=== PATIENT | female | born 1935 | race Caucasian/White ===

== ENCOUNTER 2019-04-18 08:20 | Emergency (ER) | payer MEDICARE, BC ==
[2019-04-18] MEDS: Sodium Chloride 0.9% 10 ML Syringe FLUSH PRN ×2 (08:30→08:45)
--- NOTE | 2019-04-18 08:50 | EDM.PDOC ---
ED HPI GENERAL MEDICAL PROBLEM - General Chief Complaint: General Stated Complaint: PLUG PICC LINE Time Seen by Provider: 04/18/19 08:30 Source of Information: Reports: Patient History Limitations: Reports: No Limitations - History of Present Illness INITIAL COMMENTS - FREE TEXT/NARRATIVE: pt sent in from [facility] has PICC line that is clogged no pain or redness or swelling noted in the site PICC line being used for administration of IV antibiotics Onset: Today Onset Date: 04/18/19 Onset Time: 07:30 Location: Reports: Upper Extremity, Right Severity: Mild Associated Symptoms: Reports: No Other Symptoms - Related Data Allergies Allergy/AdvReac Type Severity Reaction Status Date / Time clindamycin Allergy Rash Verified 06/11/15 07:05 hydrocodone Allergy Cannot Verified 06/11/15 07:05 Remember Penicillins Allergy Hives Verified 06/11/15 07:05 prednisone Allergy Cannot Verified 06/11/15 07:05 Remember sulfamethoxazole Allergy Rash Verified 06/11/15 07:05 [From Bactrim] trimethoprim [From Bactrim] Allergy Rash Verified 06/11/15 07:05 EGG WHITES Allergy Cannot Uncoded 06/11/15 07:05 Remember Home Meds: Home Meds Hydrocodone/Acetaminophen [Hydrocodon-Acetaminophen 5-325] 1 each PO Q4HR PRN # 12 tablet 05/26/15 [Rx] Gabapentin 100 mg PO DAILY 06/10/15 [History] HCTZ/Triamterene [Dyazide 25-37.5 MG] 25 - 37.5 mg PO DAILY 06/10/15 [History] Montelukast [Singulair] 10 mg PO DAILY 06/10/15 [History] Omeprazole [Prilosec] 20 mg PO DAILY 06/10/15 [History] Simvastatin [Zocor] 20 mg PO DAILY 06/10/15 [History] Citalopram Hydrobromide [Celexa] 20 mg PO DAILY 06/11/15 [History] Past Medical History HEENT History: Reports: Cataract Cardiovascular History: Reports: High Cholesterol, Hypertension Respiratory History: Reports: Asthma Gastrointestinal History: Reports: Cholelithiasis, GERD Genitourinary History: Reports: None NURSERY RN History: Reports: None Musculoskeletal History: Reports: None Neurological History: Reports: None Psychiatric History: Reports: None Endocrine/Metabolic History: Reports: None Hematologic History: Reports: None Immunologic History: Reports: None Oncologic (Cancer) History: Reports: None Dermatologic History: Reports: None - Infectious Disease History Infectious Disease History: Reports: Chicken Pox, Measles - Past Surgical History HEENT Surgical History: Reports: Cataract Surgery, Tonsillectomy Female Surgical History: Reports: Hysterectomy, Other (See Below) Musculoskeletal Surgical History: Reports: Other (See Below) ED ROS GENERAL - Review of Systems Review Of Systems: Comprehensive ROS is negative, except as noted in HPI. ED EXAM, GENERAL - Physical Exam Exam: See Below Exam Limited By: No Limitations General Appearance: Alert, WD/WN, No Apparent Distress Eye Exam: Bilateral Eye: EOMI Head: Atraumatic Neck: Supple, Non-Tender Respiratory/Chest: No Respiratory Distress Peripheral Pulses: 2+: Brachial (L), Brachial (R), Radial (L), Radial (R) GI/Abdominal: Soft Skin Exam: Warm, Dry, Other (right cubital region and medial arm with PICC line ,. NO redness , non swelling , no pain) Course - Orders/Labs/Meds Orders: Active Orders 24 hr Category Date Time Status Heparin Sodium [Heparin Lock Flush 100 Units/ML] Med 04/18/19 08:38 Active 300 units FLUSH ASDIRECTED PRN Sodium Chloride 0.9% [Saline Flush] Med 04/18/19 08:43 Active 10 ml FLUSH ASDIRECTED PRN Medication Orders Heparin Sodium (Porcine) (Heparin Lock Flush 100 Units/Ml) 300 units FLUSH ASDIRECTED PRN PRN Reason: Keep Vein Open Sodium Chloride (Saline Flush) 10 ml FLUSH ASDIRECTED PRN PRN Reason: IV Use Meds: Medications Generic Name Dose Route Start Last Admin Trade Name Freq PRN Reason Stop Dose Admin Heparin Sodium (Porcine) 300 units 04/18/19 08:38 Heparin Lock Flush 100 Units/Ml FLUSH ASDIRECTED PRN Keep Vein Open Sodium Chloride 10 ml 04/18/19 08:43 Saline Flush FLUSH ASDIRECTED PRN IV Use - Re-Assessments/Exams Free Text/Narrative Re-Assessment/Exam: 04/18/19 08:49 PICC flushed with heparin and it resumed to be functional will continue with protocol Departure - Departure Time of Disposition: 09:00 Disposition: DC/Tfer to SNF 03 Condition: Fair Clinical Impression: PICC (peripherally inserted central catheter) flush, Occluded PICC line - Discharge Information *PRESCRIPTION DRUG MONITORING PROGRAM REVIEWED*: Not Applicable *COPY OF PRESCRIPTION DRUG MONITORING REPORT IN PATIENT ANDREW: Not Applicable Referrals: Tim Johnson MD [Primary Care Provider] - - My Orders Last 24 Hours: My Active Orders 04/18/19 08:38 Heparin Sodium [Heparin Lock Flush 100 Units/ML] 300 units FLUSH ASDIRECTED PRN 04/18/19 08:43 Sodium Chloride 0.9% [Saline Flush] 10 ml FLUSH ASDIRECTED PRN - Assessment/Plan Last 24 Hours: My Active Orders 04/18/19 08:38 Heparin Sodium [Heparin Lock Flush 100 Units/ML] 300 units FLUSH ASDIRECTED PRN 04/18/19 08:43 Sodium Chloride 0.9% [Saline Flush] 10 ml FLUSH ASDIRECTED PRN
[2019-04-18 09:25] VITALS: BP 136/67; PULSE 71
== END 2019-04-18 09:05 ==
LOC: FB.ED 08:20
DX: T82.897A Other specified complication of cardiac prosthetic devices, implants and grafts, initial encounter (principal); E78.00 Pure hypercholesterolemia, unspecified; I10 Essential (primary) hypertension; J45.909 Unspecified asthma, uncomplicated; K21.9 Gastro-esophageal reflux disease without esophagitis; Z88.1 Allergy status to other antibiotic agents; Z88.5 Allergy status to narcotic agent; Z88.0 Allergy status to penicillin; Z88.2 Allergy status to sulfonamides; Z91.012 Allergy to eggs; Z79.899 Other long term (current) drug therapy
CPT/HCPCS: 99283; J1642